=== PATIENT | male | born 1965 | race Two or more races ===

== ENCOUNTER → 2017-11-20 | Day surgery (SDC) | payer OTHER ==
[~2017-11-20] VITALS: Ht 175.3 cm; Wt 101.6 kg
[2017-11-20 07:16] VITALS: BP 142/98
[2017-11-20 13:45] VITALS: BP 149/89
== END | disposition home or self-care (01) ==
LOC: DS 06:41 → OR 07:30 → DS 07:30
PROVIDERS: Neuromusculoskeletal Medicine, Sports Medicine
PROC: 0MN20ZZ Release Left Shoulder Bursa and Ligament, Open Approach (ICD-10-PCS; 2017-11-20)
PROC: 0LM20ZZ Reattachment of Left Shoulder Tendon, Open Approach (ICD-10-PCS; principal; 2017-11-20 07:30)
DX: M75.102 Unspecified rotator cuff tear or rupture of left shoulder, not specified as traumatic (principal); M75.42 Impingement syndrome of left shoulder; I12.9 Hypertensive chronic kidney disease with stage 1 through stage 4 chronic kidney disease, or unspecified chronic kidney disease; N18.9 Chronic kidney disease, unspecified
CPT/HCPCS: C1713; J0690; J1170; J2405; J2704; J3010; J3490; J7120